=== PATIENT | male | born 1980 | race Caucasian/White ===

== ENCOUNTER 2024-12-28 05:55 | Day surgery (SDC) | payer BC ==
[2024-12-22 09:39] VITALS: BP 132/90
[~2024-12-28] VITALS: Ht 172.7 cm; Wt 92.0 kg
[~2024-12-28 05:55] MED LIST: LACTATED RINGER'S 1,000 ML IV SCH
[2024-12-28 06:04] VITALS: BP 127/82
[2024-12-28] MEDS ORDERED: LIDOCAINE HCL 1% 5 ML SDV INJ ONE (07:00)
[2024-12-28] MEDS ORDERED: IBLOOD GLUCOSE TEST STRIP 1 EA TEST VI PRN (07:00)
--- NOTE | 2024-12-28 08:29 | NUR ---
12/28/24 0829 Naz Nieto 0757 PT ARRIVED IN PACU SLEEPY. ABD SOFT AND PASSING FLATUS. [address] AT BEDSIDE. ALL QUESTIONS ANSWERED.
[2024-12-28 08:36] VITALS: BP 106/68
== END 2024-12-28 08:42 | disposition home or self-care (01) ==
LOC: DS 05:55
PROVIDERS: ATTEND Surgery
PROC: 0DJD8ZZ Inspection of Lower Intestinal Tract, Via Natural or Artificial Opening Endoscopic (ICD-10-PCS; principal; 2024-12-28 07:30)
DX: Z12.11 Encounter for screening for malignant neoplasm of colon (principal); Z87.891 Personal history of nicotine dependence; Z88.0 Allergy status to penicillin
CPT/HCPCS: 00812; J2704; J7121